=== PATIENT | female | born 1985 | race Asian ===

== ENCOUNTER 2016-11-05 08:00 | Outpatient (CLI) | payer BC ==
[2016-11-05 08:31] LABS: BASOPHILS % (AUTO) 0.4 % (0.0-2.0); EOSINOPHILS # (AUTO) 0.2 /CMM (0.0-0.7); EOSINOPHILS % (AUTO) 3.6 % (0.0-6.0); HEMATOCRIT 41 % (33-45); HEMOGLOBIN 13.7 g/dL (11.5-14.8); LYMPHOCYTES # (AUTO) 1.9 /CMM (0.8-4.8); LYMPHOCYTES % (AUTO) 33.7 % (20.0-44.0); MEAN CORPUSCULAR HEMOGLOBIN 28 PG (26.0-33.0); MEAN CORPUSCULAR HGB CONC 34 g/dl (31.0-36.0); MEAN CORPUSCULAR VOLUME 84 fL (82-100); MONOCYTES # (AUTO) 0.4 /CMM (0.1-1.30); MONOCYTES % (AUTO) 7.7 % (2.0-12.0); NEUTROPHILS % (AUTO) 54.6 % (43.0-81.0); PLATELET COUNT (AUTO) 176 /CMM (150-450); RDW COEFFICIENT OF VARIATION 12.3 (11.5-15.0); WHITE BLOOD COUNT (AUTO) 5.5 K/uL (4.3-11.0)
[2016-11-05 08:49] LABS: ALBUMIN 4.1 g/dL (3.4-5.0); BILIRUBIN,TOTAL 0.5 mg/dL (0.2-1.0); CALCIUM, SERUM 9.3 mg/dL (8.5-10.1); CREATININE 0.7 mg/dL (0.6-1.3); POTASSIUM 3.7 mmol/L (3.5-5.1); TOTAL PROTEIN, SERUM 8.4 g/dL (6.4-8.2)
[2016-11-05 09:02] LABS: THYROID STIMULATING HORMONE 1.366 uIU/mL (0.358-3.74)
[2016-11-05 11:34] LABS: APPEARANCE,URINE SL CLOUDY (CLEAR); BILIRUBIN,URINE NEGATIVE (NEGATIVE); BLOOD, URINE TRACE-INTA Ery/uL (NEGATIVE); COLOR,URINE YELLOW (YELLOW); KETONES,URINE NEGATIVE (NEGATIVE); LEUKOCYTE ESTERASE ,URINE NEGATIVE (NEGATIVE); NITRITE, URINE NEGATIVE (NEGATIVE); PH,URINE 5.5 (5.0-8.0); PROTEIN,URINE NEGATIVE (NEGATIVE); UGLUCOSE NEGATIVE (NEGATIVE); UROBILINOGEN,URINE 0.2 EU/dL (0.2)
[2016-11-05 11:41] LABS: BACTERIA,URINE None seen /HPF (None Seen); RBC,URINE 0-2 /HPF (0-2); SQUAMOUS EPITHELIAL CELL,UR Few /HPF (None Seen); WBC,URINE NONE SEEN /HPF (0-3)
[2016-11-10 18:10] LABS: *AREA 13 IGE,TOTAL 75 IU/mL (0-100)
== END 2016-11-05 23:59 | disposition home or self-care (01) ==
LOC: LAB 08:00
PROVIDERS: ATTEND Legal Medicine
DX: Z00.01 Encounter for general adult medical examination with abnormal findings (principal); E78.5 Hyperlipidemia, unspecified; R79.89 Other specified abnormal findings of blood chemistry
CPT/HCPCS: 36415; 80053-TC; 80061-TC; 81000-TC; 82306; 82728-TC; 82746; 82785; 83540-TC; 84439-TC; 84443-TC; 85025-TC; 86003

== ENCOUNTER 2017-01-12 09:57 | Outpatient (CLI) | payer BC ==
[2017-01-12 10:58] LABS: APPEARANCE,URINE CLOUDY (CLEAR); BILIRUBIN,URINE NEGATIVE (NEGATIVE); BLOOD, URINE 3+ Ery/uL (NEGATIVE); COLOR,URINE YELLOW (YELLOW); KETONES,URINE NEGATIVE (NEGATIVE); LEUKOCYTE ESTERASE ,URINE TRACE (NEGATIVE); NITRITE, URINE NEGATIVE (NEGATIVE); PH,URINE 5.5 (5.0-8.0); PROTEIN,URINE 1+ mg/dl (NEGATIVE); UGLUCOSE NEGATIVE (NEGATIVE); UROBILINOGEN,URINE 0.2 EU/dL (0.2)
[2017-01-12 11:11] LABS: BACTERIA,URINE Few /HPF (None Seen); HYALINE CASTS, URINE Rare /LPF (None Seen); RBC,URINE 21-50 /HPF (0-2); SQUAMOUS EPITHELIAL CELL,UR Moderate /HPF (None Seen)
== END 2017-01-12 23:59 | disposition home or self-care (01) ==
LOC: LAB 09:57
PROVIDERS: ATTEND Legal Medicine
DX: N39.0 Urinary tract infection, site not specified (principal)
CPT/HCPCS: 81000-TC; 87086-TC

== ENCOUNTER 2018-01-06 08:51 | Outpatient (CLI) | payer BC ==
[2018-01-06 09:46] LABS: BASOPHILS % (AUTO) 0.4 % (0.0-2.0); EOSINOPHILS % (AUTO) 3.9 % (0.0-6.0); HEMATOCRIT 38 % (33-45); HEMOGLOBIN 12.7 g/dL (11.5-14.8); LYMPHOCYTES # (AUTO) 2.1 /CMM (0.8-4.8); LYMPHOCYTES % (AUTO) 32.7 % (20.0-44.0); MEAN CORPUSCULAR HGB CONC 34 g/dl (31.0-36.0); MEAN CORPUSCULAR VOLUME 84 fL (82-100); MONOCYTES # (AUTO) 0.5 /CMM (0.1-1.30); MONOCYTES % (AUTO) 7.7 % (2.0-12.0); NEUTROPHILS # (AUTO) 3.5 /CMM (1.8-8.9); NEUTROPHILS % (AUTO) 55.3 % (43.0-81.0); PLATELET COUNT (AUTO) 176 /CMM (150-450); RED BLOOD CELL COUNT(AUTO) 4.49 MIL/uL (4.0-5.2); WHITE BLOOD COUNT (AUTO) 6.4 K/uL (4.3-11.0)
[2018-01-11] MEDS ORDERED: CETI-102 PO (13:19)
== END 2018-01-06 23:59 | disposition home or self-care (01) ==
LOC: LAB 08:51
DX: Z01.812 Encounter for preprocedural laboratory examination (principal)
CPT/HCPCS: 36415; 85025-TC; 85610-TC; 85730-TC

== ENCOUNTER 2018-07-23 18:59 | Emergency (ER) | payer BC, OTHER ==
[~2018-07-23] VITALS: Ht 157.5 cm; Wt 86.2 kg
[~2018-07-23 18:59] MED LIST: CETI-102 PO
[2018-07-23 19:03] VITALS: BP 140/91
[2018-07-23] MEDS ORDERED: FAMOTIDINE/PF INJ 20 MG/2 ML VIAL IV ONE ×2 (19:30→19:31)
[2018-07-23] MEDS ORDERED: methylPREDNISolone SOD SUCC 125 MG/2ML VIAL IV ONE (19:30)
[2018-07-23] MEDS ORDERED: methylPREDNISolone SOD SUCC 125 MG/2ML VIAL ONE (19:31)
--- NOTE | 2018-07-23 19:45 | NUR ---
IV removed. Catheter intact and site benign. Pressure and 4x4 applied to site. No bleeding noted.Patient discharged to home in stable condition. Written and verbal after care instructions given. Patient verbalizes understanding of instruction.
== END 2018-07-23 19:46 | disposition home or self-care (01) ==
LOC: ER 19:01
DX: L50.9 Urticaria, unspecified (principal)
CPT/HCPCS: 96374; 96375; 99283; J2930; J3490

== ENCOUNTER 2018-08-26 08:41 | Outpatient (CLI) | payer BC ==
[2018-08-26 10:20] LABS: BASOPHILS % (AUTO) 0.5 % (0.0-2.0); EOSINOPHILS % (AUTO) 5.7 % (0.0-6.0); HEMATOCRIT 38 % (33-45); LYMPHOCYTES # (AUTO) 2.1 /CMM (0.8-4.8); LYMPHOCYTES % (AUTO) 37.1 % (20.0-44.0); MEAN CORPUSCULAR HGB CONC 34 g/dl (31.0-36.0); MEAN CORPUSCULAR VOLUME 83 fL (82-100); MONOCYTES # (AUTO) 0.6 /CMM (0.1-1.30); MONOCYTES % (AUTO) 9.5 % (2.0-12.0); NEUTROPHILS # (AUTO) 2.7 /CMM (1.8-8.9); NEUTROPHILS % (AUTO) 47.2 % (43.0-81.0); PLATELET COUNT (AUTO) 170 /CMM (150-450); RED BLOOD CELL COUNT(AUTO) 4.58 MIL/uL (4.0-5.2); WHITE BLOOD COUNT (AUTO) 5.8 K/uL (4.3-11.0)
[2018-08-26 10:31] LABS: ALBUMIN 3.8 g/dL (3.4-5.0); BILIRUBIN,TOTAL 0.4 mg/dL (0.2-1.0); CALCIUM, SERUM 8.9 mg/dL (8.5-10.1); CREATININE 0.8 mg/dL (0.6-1.3); POTASSIUM 3.8 mmol/L (3.5-5.1); TOTAL PROTEIN, SERUM 7.5 g/dL (6.4-8.2)
[2018-08-26 10:43] LABS: THYROID STIMULATING HORMONE 1.194 uIU/mL (0.358-3.74)
[2018-08-26 10:58] LABS: APPEARANCE,URINE SL CLOUDY (CLEAR); BILIRUBIN,URINE NEGATIVE (NEGATIVE); BLOOD, URINE 3+ Ery/uL (NEGATIVE); COLOR,URINE YELLOW (YELLOW); KETONES,URINE NEGATIVE (NEGATIVE); LEUKOCYTE ESTERASE ,URINE NEGATIVE (NEGATIVE); NITRITE, URINE NEGATIVE (NEGATIVE); PH,URINE 5.5 (5.0-8.0); PROTEIN,URINE NEGATIVE (NEGATIVE); UGLUCOSE NEGATIVE (NEGATIVE); UROBILINOGEN,URINE 0.2 EU/dL (0.2)
[2018-08-26 12:21] LABS: BACTERIA,URINE Moderate /HPF (None Seen); SQUAMOUS EPITHELIAL CELL,UR Few /HPF (None Seen); WBC,URINE 0-2 /HPF (0-3)
[2018-08-27 13:06] LABS: FOLIC ACID 12.9 ng/mL (>3.0)
== END 2018-08-26 23:59 | disposition home or self-care (01) ==
LOC: LAB 08:41
PROVIDERS: ATTEND Legal Medicine
DX: Z00.00 Encounter for general adult medical examination without abnormal findings (principal)
CPT/HCPCS: 36415; 80053-TC; 80061-TC; 81000-TC; 82306; 82728-TC; 83540-TC; 84439-TC; 84443-TC; 85025-TC; 87086-TC

== ENCOUNTER 2018-09-10 15:45 | Emergency (ER) | payer BC, OTHER ==
[~2018-09-10] VITALS: Ht 157.5 cm; Wt 81.6 kg
[2018-09-10 15:57] VITALS: BP 116/68
== END 2018-09-10 16:11 | disposition home or self-care (01) ==
LOC: ER 15:45
DX: J06.9 Acute upper respiratory infection, unspecified (principal)

== ENCOUNTER 2019-05-20 14:50 | Emergency (ER) | payer BC, OTHER ==
[~2019-05-20] VITALS: Ht 160 cm; Wt 88.9 kg
[~2019-05-20 14:50] MED LIST changes: -CETI-102 PO; +CETI-110 PO
[2019-05-20 15:00] VITALS: BP 137/92
[2019-05-20] MEDS ORDERED: ACETAMINOPHEN ES 500 MG TABLET ONE (15:50)
[2019-05-20] MEDS ORDERED: ACETAMINOPHEN 325 MG TABLET PO ONE (16:00)
== END 2019-05-20 16:12 | disposition home or self-care (01) ==
LOC: ER 14:57
DX: B34.9 Viral infection, unspecified (principal); R50.9 Fever, unspecified; Z20.828 Contact with and (suspected) exposure to other viral communicable diseases
CPT/HCPCS: 99284; 0099U; 71045; 87635; 87804

== ENCOUNTER 2019-05-29 19:23 | Emergency (ER) | payer BC, OTHER ==
[~2019-05-29] VITALS: Ht 157.5 cm; Wt 81.6 kg
--- NOTE | 2019-05-29 19:29 | NUR ---
BIB FOR C/O DYSURIA. RECENTLY COMPLETED A DOSE OF ATB FOR UTI. - HEMATURIA. AFEBRILE. URINE COLLECTED AND SENT TO THE LAB
[2019-05-29 19:37] LABS: APPEARANCE,URINE Clear (CLEAR); BILIRUBIN,URINE Negative (NEGATIVE); BLOOD, URINE Trace-lysed Ery/uL (NEGATIVE); COLOR,URINE Yellow (YELLOW); KETONES,URINE Negative (NEGATIVE); LEUKOCYTE ESTERASE ,URINE Negative (NEGATIVE); NITRITE, URINE Negative (NEGATIVE); PH,URINE 5.5 (5.0-8.0); PROTEIN,URINE Negative (NEGATIVE); UGLUCOSE Negative (NEGATIVE); UROBILINOGEN,URINE 0.2 EU/dL (0.2)
--- NOTE | 2019-05-29 19:47 | NUR ---
Patient discharged to home in stable condition. Rx and Written and verbal after care instructions given. Patient verbalizes understanding of instruction.
[2019-05-29 19:48] VITALS: BP 118/75
[2019-05-29 19:57] LABS: BACTERIA,URINE Rare /HPF (None Seen); SQUAMOUS EPITHELIAL CELL,UR Few /HPF (None Seen); WBC,URINE NONE SEEN /HPF (0-3)
== END 2019-05-29 19:48 | disposition home or self-care (01) ==
LOC: ER 19:24
DX: R30.0 Dysuria (principal); Z79.899 Other long term (current) drug therapy
CPT/HCPCS: 81000-TC; 87086-TC

== ENCOUNTER 2019-07-25 06:59 | Emergency (ER) | payer BC, OTHER ==
[~2019-07-25] VITALS: Ht 157.5 cm; Wt 81.6 kg
--- NOTE | 2019-07-25 07:02 | NUR ---
PT CAME TO THE ED C/O FEVER, CHILLS AND HEADACHE SINCE LAST NIGHT. PT TOOK TYLENOL 1 G 0500 TODAY. PT AAOX4, VSS, RESPIRATIONS EVEN ADND UNLABORED ON RA W/ NAD NOTED. PT CONNECTED TO THE MONITOR AND POX
[2019-07-25] MEDS ORDERED: IV NS 0.9% 1,000 ML IV ONE (07:06)
--- NOTE | 2019-07-25 07:08 | NUR ---
DR SANTAMARIA AT BEDSIDE
[2019-07-25] MEDS ORDERED: IBUPROFEN 600 MG TABLET PO ONE (07:09)
[2019-07-25] MEDS ORDERED: IBUPROFEN 400 MG TABLET PO ONE (07:30)
[2019-07-25 08:01] LABS: ALBUMIN 3.8 g/dL (3.4-5.0); BILIRUBIN,TOTAL 0.3 mg/dL (0.2-1.0); CALCIUM, SERUM 8.8 mg/dL (8.5-10.1); CREATININE 0.8 mg/dL (0.6-1.3); POTASSIUM 3.6 mmol/L (3.5-5.1); TOTAL PROTEIN, SERUM 7.6 g/dL (6.4-8.2)
[2019-07-25 08:12] LABS: BASOPHILS % (AUTO) 0.5 % (0.0-2.0); EOSINOPHILS % (AUTO) 2.4 % (0.0-6.0); HEMATOCRIT 38 % (33-45); HEMOGLOBIN 12.9 g/dL (11.5-14.8); LYMPHOCYTES # (AUTO) 0.8 /CMM (0.8-4.8); LYMPHOCYTES % (AUTO) 23.6 % (20.0-44.0); MEAN CORPUSCULAR HGB CONC 34 g/dl (31.0-36.0); MEAN CORPUSCULAR VOLUME 85 fL (82-100); MONOCYTES # (AUTO) 0.6 /CMM (0.1-1.30); MONOCYTES % (AUTO) 17.5 % (2.0-12.0); PLATELET COUNT (AUTO) 127 /CMM (150-450); RED BLOOD CELL COUNT(AUTO) 4.53 MIL/uL (4.0-5.2); WHITE BLOOD COUNT (AUTO) 3.5 K/uL (4.3-11.0)
[2019-07-25 09:56] VITALS: BP 144/81
--- NOTE | 2019-07-25 09:57 | NUR ---
Patient discharged to home in stable condition. Written and verbal after care instructions given. Patient verbalizes understanding of instruction.IV removed. Catheter intact and site benign. Pressure and 4x4 applied to site. No bleeding noted.
--- NOTE | 2019-07-26 02:42 | NUR ---
Rec'd call from Irena from LAB; + covid
--- NOTE | 2019-07-26 04:08 | NUR ---
called regarding covid+ result. aware.
== END 2019-07-25 09:57 | disposition home or self-care (01) ==
LOC: ER 07:01
DX: U07.1 COVID-19 (principal); R09.81 Nasal congestion; R50.9 Fever, unspecified; M79.10 Myalgia, unspecified site
CPT/HCPCS: 36415; 80053; 85025; 99283; C9803; U0003

== ENCOUNTER 2019-08-01 02:07 | Emergency (ER) | payer BC, OTHER ==
[~2019-08-01] VITALS: Ht 157.5 cm; Wt 87.5 kg
[2019-08-01] MEDS ORDERED: ALBUTEROL FS 2.5 MG/3 ML VIAL.NEB ONE (02:23)
[2019-08-01] MEDS ORDERED: IPRATROPIUM NEB FS 0.5 MG/2.5 ML AMPUL.NEB ONE (02:23)
[2019-08-01] MEDS ORDERED: ALBUTEROL FS 2.5 MG/3 ML VIAL.NEB NEB ONE (02:30)
[2019-08-01] MEDS ORDERED: IPRATROPIUM NEB FS 0.5 MG/2.5 ML AMPUL.NEB NEB ONE (02:30)
[2019-08-01 02:49] LABS: BASOPHILS % (AUTO) 0.3 % (0.0-2.0); HEMATOCRIT 35 % (33-45); HEMOGLOBIN 12.1 g/dL (11.5-14.8); LYMPHOCYTES # (AUTO) 1.5 /CMM (0.8-4.8); LYMPHOCYTES % (AUTO) 37.1 % (20.0-44.0); MEAN CORPUSCULAR HGB CONC 34 g/dl (31.0-36.0); MEAN CORPUSCULAR VOLUME 83 fL (82-100); MONOCYTES # (AUTO) 0.4 /CMM (0.1-1.30); MONOCYTES % (AUTO) 10.7 % (2.0-12.0); NEUTROPHILS # (AUTO) 2.1 /CMM (1.8-8.9); NEUTROPHILS % (AUTO) 51.9 % (43.0-81.0); PLATELET COUNT (AUTO) 110 /CMM (150-450); RED BLOOD CELL COUNT(AUTO) 4.29 MIL/uL (4.0-5.2); WHITE BLOOD COUNT (AUTO) 4.1 K/uL (4.3-11.0)
--- NOTE | 2019-08-01 02:50 | NUR ---
BIBS FOR C/O SOB. SATTING 98% ON R/A. 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
[2019-08-01 02:57] LABS: CALCIUM, SERUM 8.7 mg/dL (8.5-10.1); CARBON DIOXIDE 23 mmol/L (21-32); CHLORIDE 99 mmol/L (98-107); CREATININE 0.7 mg/dL (0.6-1.3); GLUCOSE 128 mg/dL (74-106); SODIUM SERUM 135 mmol/L (136-145); UREA NITROGEN, BLOOD 9 mg/dL (7-18)
[2019-08-01 03:11] LABS: ALANINE AMINOTRANSFERASE 43 U/L (12-78); ALBUMIN 3.6 g/dL (3.4-5.0); ALKALINE PHOSPHATASE 45 U/L (46-116); ASPARTATE AMINOTRANSFERASE 33 U/L (15-37); BILIRUBIN,TOTAL 0.6 mg/dL (0.2-1.0); TOTAL PROTEIN, SERUM 7.7 g/dL (6.4-8.2)
--- NOTE | 2019-08-01 03:11 | NUR ---
LINE STARTED, BLOOD DRAWN AND SENT TO LAB, XRAY TAKEN AT [facility]
[2019-08-01 03:12] LABS: B-TYPE NATRIURETIC PEPTIDE 7 PG/ML (0-125)
[2019-08-01 03:14] LABS: C-REACTIVE PROTEIN 5.7 mg/dL (0.0-0.9); CREATINE KINASE, TOTAL 138 U/L (26-192); FERRITIN 336 ng/mL (8-388)
[2019-08-01 03:29] LABS: D-DIMER 0.81 mg/L(FEU (0.17-0.50)
[2019-08-01] MEDS ORDERED: ONDANSETRON HCL/PF - ER 4 MG/2 ML VIAL IV ONE (03:30)
[2019-08-01] MEDS ORDERED: POTASSIUM CHLORIDE 20 MEQ TAB.PRT.SR PO ONE ×2 (03:30→03:33)
[2019-08-01] MEDS ORDERED: ONDANSETRON HCL/PF 4 MG/2 ML VIAL ONE (03:33)
--- NOTE | 2019-08-01 03:47 | NUR ---
IV removed. Catheter intact and site benign. Pressure and 4x4 applied to site. No bleeding noted.Patient discharged to home in stable condition. Rx and Written and verbal after care instructions given. Patient verbalizes understanding of instruction.
--- NOTE | 2019-08-01 03:49 | NUR ---
Patient discharged to home in stable condition. Written and verbal after care instructions given. Patient verbalizes understanding of instruction.
[2019-08-01 03:50] VITALS: BP 109/67
== END 2019-08-01 03:50 | disposition home or self-care (01) ==
LOC: ER 02:08
DX: U07.1 COVID-19 (principal)
CPT/HCPCS: 36415; 71045; 80053; 82550; 82728; 83605; 83615; 83880; 84145; 84484; 85025; 85378; 85385; 86140; 87040; 93005; 94640; 96374; 99285; C9803; J2405 ×2; U0003

== ENCOUNTER 2019-08-25 11:05 | Emergency (ER) | payer BC, OTHER ==
[~2019-08-25] VITALS: Ht 157.5 cm; Wt 87.1 kg
[2019-08-25 11:20] VITALS: BP 140/88
--- NOTE | 2019-08-25 13:22 | NUR ---
Patient discharged to home in stable condition. Written and verbal after care instructions given. Patient verbalizes understanding of instruction.
== END 2019-08-25 13:23 | disposition home or self-care (01) ==
LOC: ER 11:05
DX: U07.1 COVID-19 (principal)
CPT/HCPCS: 71045; 99284; C9803; U0003

== ENCOUNTER 2019-09-11 11:51 | Emergency (ER) | payer BC, OTHER ==
[~2019-09-11] VITALS: Ht 157.5 cm; Wt 88.5 kg
[2019-09-11 11:51] VITALS: BP 129/90
--- NOTE | 2019-09-11 12:22 | NUR ---
COVID SWAB OBTAINED AND SENT TO LAB.
--- NOTE | 2019-09-11 12:27 | NUR ---
Patient discharged to home in stable condition. Written and verbal after care instructions given. Patient verbalizes understanding of instruction.
== END 2019-09-11 12:28 | disposition home or self-care (01) ==
LOC: ER 11:59
DX: Z03.818 Encounter for observation for suspected exposure to other biological agents ruled out (principal)
CPT/HCPCS: 99283; C9803; U0003

== ENCOUNTER 2019-12-05 18:52 | Emergency (ER) | payer BC, OTHER ==
[~2019-12-05] VITALS: Ht 165.1 cm; Wt 68.0 kg
[~2019-12-05 18:52] MED LIST changes: -CETI-110 PO; +CETI-90 PO
--- NOTE | 2019-12-05 18:59 | NUR ---
c/o sorethroat x 1 day, on room air, breathing evenly and unlabored. kept comfortable, will continue to monitor accordingly.
--- NOTE | 2019-12-05 21:10 | NUR ---
Patient discharged to home in stable condition. Written and verbal after care instructions given. Patient verbalizes understanding of instruction.
[2019-12-05 22:37] VITALS: BP 123/62
== END 2019-12-05 21:10 | disposition home or self-care (01) ==
LOC: ER 18:55
DX: J02.8 Acute pharyngitis due to other specified organisms (principal); Z20.828 Contact with and (suspected) exposure to other viral communicable diseases
CPT/HCPCS: 87070; 87426; 87880; 99283; C9803; 86403-TC

== ENCOUNTER 2019-12-06 17:02 | Outpatient (CLI) | payer BC, OTHER | END 2019-12-06 23:59 | disposition home or self-care (01) | LOC: LAB 17:02 | PROVIDERS: ATTEND Nurse Practitioner Acute Care | DX: J02.9 Acute pharyngitis, unspecified (principal); R50.9 Fever, unspecified; Z20.828 Contact with and (suspected) exposure to other viral communicable diseases | CPT/HCPCS: 87804; C9803; U0003 ==

== ENCOUNTER 2020-04-18 07:34 | Outpatient (CLI) | payer BC, OTHER ==
[2020-04-18 09:30] LABS: BASOPHILS % (AUTO) 0.5 % (0.0-2.0); BILIRUBIN,URINE NEGATIVE (NEGATIVE); COLOR,URINE YELLOW (YELLOW); EOSINOPHILS % (AUTO) 4.9 % (0.0-6.0); HEMATOCRIT 38 % (33-45); HEMOGLOBIN 12.9 g/dL (11.5-14.8); LEUKOCYTE ESTERASE ,URINE NEGATIVE (NEGATIVE); LYMPHOCYTES # (AUTO) 2.7 /CMM (0.8-4.8); MEAN CORPUSCULAR HGB CONC 34 g/dl (31.0-36.0); MEAN CORPUSCULAR VOLUME 84 fL (82-100); MONOCYTES # (AUTO) 0.5 /CMM (0.1-1.30); MONOCYTES % (AUTO) 7.2 % (2.0-12.0); NEUTROPHILS # (AUTO) 3.8 /CMM (1.8-8.9); NEUTROPHILS % (AUTO) 51.4 % (43.0-81.0); NITRITE, URINE NEGATIVE (NEGATIVE); PH,URINE 5.5 (5.0-8.0); PLATELET COUNT (AUTO) 167 /CMM (150-450); PROTEIN,URINE NEGATIVE (NEGATIVE); RED BLOOD CELL COUNT(AUTO) 4.52 MIL/uL (4.0-5.2); UGLUCOSE NEGATIVE (NEGATIVE); UROBILINOGEN,URINE 0.2 EU/dL (0.2); WHITE BLOOD COUNT (AUTO) 7.4 K/uL (4.3-11.0)
[2020-04-18 10:03] LABS: FREE T4 (FREE THYROXINE) 0.84 ng/dL (0.76-1.46); THYROID STIMULATING HORMONE 1.516 uIU/mL (0.358-3.74); URIC ACID 6.1 mg/dL (2.6-7.2)
[2020-04-18 10:11] LABS: BACTERIA,URINE None seen /HPF (None Seen); RBC,URINE 0-2 /HPF (0-2); SQUAMOUS EPITHELIAL CELL,UR Moderate /HPF (None Seen); WBC,URINE 0-2 /HPF (0-3)
[2020-04-18 10:33] LABS: BILIRUBIN,TOTAL 0.4 mg/dL (0.2-1.0); CALCIUM, SERUM 9.3 mg/dL (8.5-10.1); CREATININE 0.7 mg/dL (0.6-1.3); POTASSIUM 4.3 mmol/L (3.5-5.1); TOTAL PROTEIN, SERUM 7.9 g/dL (6.4-8.2)
== END 2020-04-18 23:59 | disposition home or self-care (01) ==
LOC: LAB 07:34
PROVIDERS: ATTEND Legal Medicine
DX: I10 Essential (primary) hypertension (principal); E03.9 Hypothyroidism, unspecified; D64.9 Anemia, unspecified; E78.00 Pure hypercholesterolemia, unspecified; Z00.00 Encounter for general adult medical examination without abnormal findings
CPT/HCPCS: 36415; 80053-TC; 80061-TC; 81001; 82306; 82550-TC; 82607-TC; 82728-TC; 83540-TC; 83880; 84439-TC; 84443-TC; 84550-TC; 85025-TC; 85652-TC

== ENCOUNTER 2020-04-29 07:48 | Outpatient (CLI) | payer BC, OTHER ==
[2020-05-01 21:06] LABS: CCP IgG/IgA AB 4 units (0-19)
== END 2020-04-29 23:59 | disposition home or self-care (01) ==
LOC: LAB 07:48
PROVIDERS: ATTEND Legal Medicine
DX: R70.0 Elevated erythrocyte sedimentation rate (principal)
CPT/HCPCS: 82785; 85652-TC; 86140-TC; 86200; 86431-TC

== ENCOUNTER 2020-08-27 07:22 | Outpatient (CLI) | payer BC, OTHER ==
[2020-08-27 08:23] LABS: BILIRUBIN,URINE NEGATIVE (NEGATIVE); LEUKOCYTE ESTERASE ,URINE MODERATE (NEGATIVE); NITRITE, URINE POSITIVE (NEGATIVE); PROTEIN,URINE >=300 mg/dl (NEGATIVE); UGLUCOSE NEGATIVE (NEGATIVE); UROBILINOGEN,URINE 0.2 EU/dL (0.2)
[2020-08-27 08:40] LABS: COLOR,URINE YELLOW (YELLOW)
[2020-08-27 10:32] LABS: BACTERIA,URINE Many /HPF (None Seen); RBC,URINE 81-100 /HPF (0-2); WBC,URINE 21-50 /HPF (0-3)
[2020-08-27 10:33] LABS: SQUAMOUS EPITHELIAL CELL,UR Few /HPF (None Seen)
== END 2020-08-27 23:59 | disposition home or self-care (01) ==
LOC: LAB 07:22
PROVIDERS: ATTEND Nurse Practitioner Acute Care
DX: N39.0 Urinary tract infection, site not specified (principal)
CPT/HCPCS: 81001; 87086-TC; 87186-TC